=== PATIENT | male | born 1975 | race Caucasian/White ===

== ENCOUNTER 2018-06-23 08:12 | Outpatient (RCR) | payer SELFPAY ==
--- NOTE | 2018-06-23 08:13 | COCO.CNN ---
Primary Reason for Visit Mental Health (Support for family) Referral to Care Coordination Referral to Care Coordination: Yes Type: Other (resource team referral) Referral to Services: Yes - Referral From Referral From: School ([employer]) Care Plan - Plan of Care Assessment/Background: I meet with Mary to discus the supports that we could help advocate for them. We decided to do a resource team referral so that we could present them to local agencies. If need be we can then ask for a Coordinated service plan. We will present them next Tuesday and then make a plan to move forward from there. Plan of Care: present family at the resource team [facility] Self Management Plan Complete?: Yes (action plan)
== END 2018-07-21 23:59 | disposition home or self-care (01) ==
LOC: COCO 08:12
PROVIDERS: PCP Internal Medicine; Visit Provider Internal Medicine
DX: R69 Illness, unspecified (principal)

== ENCOUNTER 2018-07-26 19:58 | Emergency (ER) | payer MEDICARE, MEDICAID, SELFPAY ==
[2018-07-26 20:33] VITALS: BP 148/91; PULSE 74; RESP 18; TEMP 36.7; O2SAT 96
--- NOTE | 2018-07-26 20:49 | W.ED.GENAD ---
Discharge Plan Disposition Patient Disposition: HOME Condition: Fair Discharge Details Chief Complaint: DentalOral Clinical Impression: Dental infection Reason For Visit: worst tooth ache Primary Care Provider: Jermaine Choe ED Provider: Mariia Ruiz Home Meds and New Rx's Prescriptions: New tramadol 50 mg tablet 50 mg PO Q6H PRN (Reason: pain) Qty: 5 RF: 0 Continue ibuprofen 200 MG tablet 800 mg PO PRN RF: 0 citalopram 40 MG tablet 40 mg PO DAILY RF: 0 cetirizine [Zyrtec] 10 MG tablet 10 mg PO HS PRN PRNQty: 30 RF: 0 meclizine [Antivert] 25 MG tablet 25 mg PO Q6H PRN PRN (Reason: Vertigo) Qty: 12 RF: 0 omeprazole 20 MG tablet,delayed release (DR/EC) 40 mg PO DAILY RF: 0 propranolol 20 MG tablet 20 mg PO DAILY RF: 0 albuterol sulfate [ProAir HFA] 200 PUFF HFA aerosol inhaler 2 puff Inhalation Q4H PRN PRNQty: 1 RF: 0 No Action penicillin V potassium 500 mg Tablet 500 mg PO RF: 0 Discharge Instructions Instructions: Dental Abscess (ED) Additional Instructions: Encourage hydration. Tylenol and/or ibuprofen as needed for discomfort. You may take at thousand milligrams of Tylenol every 6 hours as needed for discomfort, no more than 4000 mg daily. You may augment this with 600 mg of ibuprofen every 6 hours as needed for pain. Hurricaine gel may be applied topically to affected area. Apply thin cloth layer to 4 times daily tramadol as prescribed if this is unsuccessful at alleviating her discomfort. Please take this medication only as prescribed, keep this in a safe place. Do not drive while taking this medication. Please keep upcoming appointment with dentist If you develop fever/chills, increased swelling, increased pain or other new/worsening symptoms please seek care urgently once again Referrals: Jermaine Choe [Primary Care Provider] - Discharge Data Discharge Date/Time-TO BE ENTERED AT DEPARTURE: 07/26/18 21:38 Medical Decision Making Patient is a 43-year-old male, accompanied by significant other, with chief complaint of left lower dental pain. Reports a dental pain began 2 days ago. Seen by his dentist today. States that he has abscess as confirmed by x-ray. They advised dental extraction after antibiotic course. Place the patient on penicillin. States he has been taking this as prescribed. His (sounds afternoon. However, he reports the pain is been increasing the point that he cannot take it. States his pain is been keeping him up for the past 2 nights. He denies any fevers or chills. states that he has been taking copious amounts of Tylenol and ibuprofen and despite this he continues to have discomfort. Is also been using Orajel with minimal relief. Patient does report that he used to chew tobacco and replace the product in the area of discomfort. On exam, patient has multiple caries, has receding gumline over the area of discomfort associated erythema. No palpable area of fluctuance to suggest a drainable abscess at this time. Patient is already on antibiotics as prescribed by dentist. He has an appointment next week and follow-up with scheduled extraction. I did review the PDM P, patient is received 1 narcotic prescription in the past year. We discussed safe usage of narcotics. He is requesting the lowest narcotic possible. Patient will be placed on tramadol. I did advise that this is still addicting and to keep him safe place, particularly as they have children in the house. Encourage hydration. Patient will also be prescribed Hurricaine gel to help with topical discomfort. We discussed new/worsening symptoms and when to seek care urgently again. I advised that he keep appointment with dentist next week even if symptoms. All of his questions and concerns were addressed and he is in agreement with this plan. HPI General Mode of arrival: ambulatory. Date/Time Provider Initiated Documentation: 07/26/18 20:33. Limitations to Documentation: no limitations. Information obtained by: patient and family. History of Present Illness 43 year old M presents to the emergency department with the chief complaint of left lower dental pain, described as severe, Quality is described as aching, and is localized to the mouth. Patient reports no radiation. Patient started experiencing this day(s) (2) and it has been constant. No relieving factors improve symptom(s), Eating worsens symptoms . Patient notes denies chest pain, cough, fever/chills, loss of appetite, nausea/vomiting, rash and shortness of breath. Patient did receive the following treatments prior to arrival, NSAID and heat therapy Related Data Home Medications Medication Instructions Recorded Confirmed ibuprofen 800 mg PO PRN 04/28/14 09/28/17 cetirizine [Zyrtec] 10 mg PO HS PRN PRN #30 tablet 04/29/15 09/28/17 citalopram 40 mg PO DAILY 04/29/15 09/28/17 meclizine [Antivert] 25 mg PO Q6H PRN PRN #12 tab 03/10/16 09/28/17 omeprazole 40 mg PO DAILY 12/25/16 09/28/17 albuterol sulfate [ProAir HFA] 2 puff INHALATION Q4H PRN PRN #1 09/28/17 inh propranolol 20 mg PO DAILY 09/28/17 09/28/17 tramadol 50 mg PO Q6H PRN #5 tab 07/26/18 penicillin V potassium 500 mg PO 07/27/18 Previous Rx's Medication Instructions Recorded cetirizine [Zyrtec] 10 mg PO HS PRN PRN #30 tablet 04/29/15 meclizine [Antivert] 25 mg PO Q6H PRN PRN #12 tab 03/10/16 albuterol sulfate [ProAir HFA] 2 puff INHALATION Q4H PRN PRN #1 09/28/17 inh tramadol 50 mg PO Q6H PRN #5 tab 07/26/18 Allergies Allergy/AdvReac Type Severity Reaction Status Date / Time erythromycin base Allergy Severe unsure- Verified 07/27/18 00:48 [Erythromycin Base] respiratory problem General Stated Complaint: DentalOral TERRELL: 4 Review of Systems Constitutional Reports as per HPI, Denies chills, Denies fatigue, Denies fever(s), Denies headache(s) and Denies poor appetite Eyes Denies change in vision and Denies irritation ENT Reports as per HPI, Reports dental pain, Denies dysphagia, Denies dizziness, Denies ear discharge, Reports otalgia, Reports facial pain, Denies headache(s), Denies lip swelling and Denies odynophagia Cardiovascular Reports as per HPI and Denies chest pain Respiratory Reports as per HPI and Denies cough Gastrointestinal Reports as per HPI, Denies dysphagia, Denies nausea, Denies odynophagia and Denies vomiting Integumentary/Breasts Reports as per HPI, Denies erythema, Denies rash and Denies skin pain Neurologic Denies dizziness and Denies headache(s) Endocrine Denies fatigue Allergic/Immunologic Denies lip swelling PFSH Social History Smoking/Tobacco Use Status: Current every day Social History Smoking/Tobacco Use Status: Current every day Exam Const General: cooperative, healthy appearing, comfortable, no acute distress, well developed and well groomed Nutritional Appearance: average body habitus and well nourished Orientation: alert and awake [facility] Head: normal to inspection, normocephalic and atraumatic Ears: hearing grossly normal bilaterally, external ears normal and TM's normal bilaterally General nose exam: external nose normal and nares normal Face and sinus: normal facial exam, sinuses nontender and face symmetric Mouth: oral mucosae normal, lip normal, tongue normal, no muffled voice and no trismus Teeth and gingiva: abnormal dentition (Patient has generally poor dentition. Along the 19, 20 and 21 tooth, there is receding gumline with blackened tissue along the buccal side of the tooth. The area of discomfort. Gingiva is erythematous. No focal area of fluctuance to suggest drainable abscess. No pain along the lingual side. No) and caries Throat: posterior oropharynx normal, tonsils normal and uvula midline Eyes General: appearance normal, both eyes and all related structures Neck Neck: normal visual inspection, full ROM, no lymphadenopathy, supple and no anterior neck swelling Resp Effort & Inspection: normal respiratory effort, able to speak in complete sentences and no respiratory distress Auscultation: clear to auscultation bilaterally, no rales, no rhonchi and no wheezes Cardio Rate: regular rate Rhythm: regular rhythm Heart Sounds: S1 normal and S2 normal Skin General skin exam: no rashes or lesions noted Trauma: no lacerations or abrasions Neuro General: alert and awake Cognition: normal cognition Speech: speech normal Gait: normal gait Psych Appearance: grossly normal and well kempt Mental Status: mental status grossly normal Speech and Movement: speech and movement normal Course Vital Signs Temperature 36.7 C 07/26/18 20:33 Pulse 74 07/26/18 20:33 Respiratory Rate 18 07/26/18 20:33 Blood Pressure 148/91 H 07/26/18 20:33 Pulse Oximetry 96 07/26/18 20:33 Temperature 36.7 C 07/26/18 20:33 Temperature Source Temporal Artery Scan 07/26/18 20:33 Pulse 74 07/26/18 20:33 Respiratory Rate 18 07/26/18 20:33 Blood Pressure 148/91 H 07/26/18 20:33 Blood Pressure Position Sitting 07/26/18 20:33 Pulse Oximetry 96 07/26/18 20:33 Oxygen Delivery Method Room Air 07/26/18 20:33 Oxygen Flow Rate 0 07/26/18 20:33 Pain Level 9 07/26/18 20:33
[2018-07-26] MEDS: traMADol 50 MG TAB PO (21:31)
[2018-07-26] MEDS: Benzocaine 20% Gel 30 GM JAR MM (21:31)
--- NOTE | 2018-07-26 21:32 | ED.GENADUL_ITS ---
Discharge Plan Disposition Patient Disposition: HOME Condition: Fair Discharge Details Chief Complaint: DentalOral Clinical Impression: Dental infection Reason For Visit: worst tooth ache Primary Care Provider: Jermanie Choe ED Provider: Mariia Ruiz Home Meds and New Rx's Prescriptions: New tramadol 50 mg tablet 50 mg PO Q6H PRN (Reason: pain) Qty: 5 RF: 0 Continue ibuprofen 200 MG tablet 800 mg PO PRN RF: 0 citalopram 40 MG tablet 40 mg PO DAILY RF: 0 cetirizine [Zyrtec] 10 MG tablet 10 mg PO HS PRN PRNQty: 30 RF: 0 meclizine [Antivert] 25 MG tablet 25 mg PO Q6H PRN PRN (Reason: Vertigo) Qty: 12 RF: 0 omeprazole 20 MG tablet,delayed release (DR/EC) 40 mg PO DAILY RF: 0 propranolol 20 MG tablet 20 mg PO DAILY RF: 0 albuterol sulfate [ProAir HFA] 200 PUFF HFA aerosol inhaler 2 puff Inhalation Q4H PRN PRNQty: 1 RF: 0 No Action penicillin V potassium 500 mg Tablet 500 mg PO RF: 0 Discharge Instructions Instructions: Dental Abscess (ED) Additional Instructions: Encourage hydration. Tylenol and/or ibuprofen as needed for discomfort. You may take at thousand milligrams of Tylenol every 6 hours as needed for discomfort, no more than 4000 mg daily. You may augment this with 600 mg of ibuprofen every 6 hours as needed for pain. Hurricaine gel may be applied topically to affected area. Apply thin tile layer helper to 4 times daily tramadol as prescribed if this is unsuccessful at alleviating her discomfort. Please take this medication only as prescribed, keep this in a safe place. Do not drive while taking this medication. Please keep upcoming appointment with dentist If you develop fever/chills, increased swelling, increased pain or other new/ worsening symptoms please seek care urgently once again Referrals: Jermaine Choe [Primary Care Provider] - Discharge Data Discharge Date/Time-TO BE ENTERED AT DEPARTURE: 07/26/18 21:38 Medical Decision Making Patient is a 43-year-old male, accompanied by significant other, with chief complaint of left lower dental pain. Reports a dental pain began 2 days ago. Seen by his dentist today. States that he has abscess as confirmed by x-ray. They advised dental extraction after antibiotic course. Place the patient on penicillin. States he has been taking this as prescribed. His (sounds afternoon. However, he reports the pain is been increasing the point that he cannot take it. States his pain is been keeping him up for the past 2 nights. He denies any fevers or chills. states that he has been taking copious amounts of Tylenol and ibuprofen and despite this he continues to have discomfort. Is also been using Orajel with minimal relief. Patient does report that he used to chew tobacco and replace the product in the area of discomfort. On exam, patient has multiple caries, has receding gumline over the area of discomfort associated erythema. No palpable area of fluctuance to suggest a drainable abscess at this time. Patient is already on antibiotics as prescribed by dentist. He has an appointment next week and follow-up with scheduled extraction. I did review the PDM P, patient is received 1 narcotic prescription in the past year. We discussed safe usage of narcotics. He is requesting the lowest narcotic possible. Patient will be placed on tramadol. I did advise that this is still addicting and to keep him safe place, particularly as they have children in the house. Encourage hydration. Patient will also be prescribed Hurricaine gel to help with topical discomfort. We discussed new/worsening symptoms and when to seek care urgently again. I advised that he keep appointment with dentist next week even if symptoms. All of his questions and concerns were addressed and he is in agreement with this plan. HPI General Mode of arrival: ambulatory . Date/Time Provider Initiated Documentation: 07/26/18 20:33 . Limitations to Documentation: no limitations . Information obtained by: patient and family . History of Present Illness 43 year old M presents to the emergency department with the chief complaint of left lower dental pain, described as severe, Quality is described as aching , and is localized to the mouth. Patient reports no radiation. Patient started experiencing this day(s) (2) and it has been constant. No relieving factors improve symptom(s), Eating worsens symptoms . Patient notes denies chest pain, cough, fever/chills, loss of appetite, nausea/vomiting, rash and shortness of breath. Patient did receive the following treatments prior to arrival, NSAID and heat therapy Related Data Home Medications Medication Instructions Recorded Confirmed ibuprofen 800 mg PO PRN 04/28/14 09/28/17 cetirizine [Zyrtec] 10 mg PO HS PRN PRN #30 tablet 04/29/15 09/28/17 citalopram 40 mg PO DAILY 04/29/15 09/28/17 meclizine [Antivert] 25 mg PO Q6H PRN PRN #12 tab 03/10/16 09/28/17 omeprazole 40 mg PO DAILY 12/25/16 09/28/17 albuterol sulfate [ProAir HFA] 2 puff INHALATION Q4H PRN PRN #1 09/28/17 inh propranolol 20 mg PO DAILY 09/28/17 09/28/17 tramadol 50 mg PO Q6H PRN #5 tab 07/26/18 penicillin V potassium 500 mg PO 07/27/18 Previous Rx's Medication Instructions Recorded cetirizine [Zyrtec] 10 mg PO HS PRN PRN #30 tablet 04/29/15 meclizine [Antivert] 25 mg PO Q6H PRN PRN #12 tab 03/10/16 albuterol sulfate [ProAir HFA] 2 puff INHALATION Q4H PRN PRN #1 09/28/17 inh tramadol 50 mg PO Q6H PRN #5 tab 07/26/18 Allergies Allergy/AdvReac Type Severity Reaction Status Date / Time erythromycin base Allergy Severe unsure- Verified 07/27/18 00:48 [Erythromycin Base] respiratory problem General Stated Complaint: DentalOral TERRELL: 4 Review of Systems Constitutional Reports as per HPI, Denies chills, Denies fatigue, Denies fever(s), Denies headache(s) and Denies poor appetite Eyes Denies change in vision and Denies irritation ENT Reports as per HPI, Reports dental pain, Denies dysphagia, Denies dizziness, Denies ear discharge, Reports otalgia, Reports facial pain, Denies headache(s), Denies lip swelling and Denies odynophagia Cardiovascular Reports as per HPI and Denies chest pain Respiratory Reports as per HPI and Denies cough Gastrointestinal Reports as per HPI, Denies dysphagia, Denies nausea, Denies odynophagia and Denies vomiting Integumentary/Breasts Reports as per HPI, Denies erythema, Denies rash and Denies skin pain Neurologic Denies dizziness and Denies headache(s) Endocrine Denies fatigue Allergic/Immunologic Denies lip swelling PFSH Social History Smoking/Tobacco Use Status: Current every day Social History Smoking/Tobacco Use Status: Current every day Exam Const General: cooperative, healthy appearing, comfortable, no acute distress, well developed and well groomed Nutritional Appearance: average body habitus and well nourished Orientation: alert and awake [facility] Head: normal to inspection, normocephalic and atraumatic Ears: hearing grossly normal bilaterally, external ears normal and TM's normal bilaterally General nose exam: external nose normal and nares normal Face and sinus: normal facial exam, sinuses nontender and face symmetric Mouth: oral mucosae normal, lip normal, tongue normal, no muffled voice and no trismus Teeth and gingiva: abnormal dentition (Patient has generally poor dentition. Along the 19, 20 and 21 tooth, there is receding gumline with blackened tissue along the buccal side of the tooth. The area of discomfort. Gingiva is erythematous. No focal area of fluctuance to suggest drainable abscess. No pain along the lingual side. No) and caries Throat: posterior oropharynx normal, tonsils normal and uvula midline Eyes General: appearance normal, both eyes and all related structures Neck Neck: normal visual inspection, full ROM, no lymphadenopathy, supple and no anterior neck swelling Resp Effort & Inspection: normal respiratory effort, able to speak in complete sentences and no respiratory distress Auscultation: clear to auscultation bilaterally, no rales, no rhonchi and no wheezes Cardio Rate: regular rate Rhythm: regular rhythm Heart Sounds: S1 normal and S2 normal Skin General skin exam: no rashes or lesions noted Trauma: no lacerations or abrasions Neuro General: alert and awake Cognition: normal cognition Speech: speech normal Gait: normal gait Psych Appearance: grossly normal and well kempt Mental Status: mental status grossly normal Speech and Movement: speech and movement normal Course Vital Signs Temperature 36.7 C 07/26/18 20:33 Pulse 74 07/26/18 20:33 Respiratory Rate 18 07/26/18 20:33 Blood Pressure 148/91 H 07/26/18 20:33 Pulse Oximetry 96 07/26/18 20:33 Temperature 36.7 C 07/26/18 20:33 Temperature Source Temporal Artery Scan 07/26/18 20:33 Pulse 74 07/26/18 20:33 Respiratory Rate 18 07/26/18 20:33 Blood Pressure 148/91 H 07/26/18 20:33 Blood Pressure Position Sitting 07/26/18 20:33 Pulse Oximetry 96 07/26/18 20:33 Oxygen Delivery Method Room Air 07/26/18 20:33 Oxygen Flow Rate 0 07/26/18 20:33 Pain Level 9 07/26/18 20:33
[2018-07-26] MEDS: traMADol 50 MG TAB 100 MG PO (21:33)
== END 2018-07-26 21:38 | disposition home or self-care (01) ==
PROVIDERS: Emergency Provider Physician Assistant; PCP Internal Medicine
DX: K04.7 Periapical abscess without sinus (principal); R68.84 Jaw pain; K02.9 Dental caries, unspecified
CPT/HCPCS: 99283

== ENCOUNTER 2019-05-29 16:05 | Emergency (ER) | payer MEDICARE, MEDICAID, SELFPAY ==
[2019-05-29 16:09] VITALS: BP 148/79; PULSE 72; RESP 16; TEMP 36.7; O2SAT 98
[2019-05-29 16:35] VITALS: RESP 19; RESP 4
[2019-05-29] MEDS: Albuterol/Ipratropium 3 ML UPD VIAL ×2 (16:35→16:51)
--- NOTE | 2019-05-29 16:39 | DI.RAD_ITS ---
EXAM: XR CHEST 2V PA LATERAL INDICATION: cough. COMPARISON: CHEST 2 VIEWS PA,LAT from 10/28/2009 TECHNIQUE: 2D digital imaging was performed. FINDINGS: There is a question regarding some ill-defined increased density in the right lower lobe. The lungs a re otherwise clear. There is no pleural effusion. The heart is not enlarged. IMPRESSION: Question of atelectasis or infiltration involving the right lower lobe.
[2019-05-29 16:51] VITALS: RESP 4; O2SAT 97
--- NOTE | 2019-05-29 17:34 | DI.VRAD_ITS ---
PROCEDURE INFORMATION: Exam: XR Chest, 2 Views Exam date and time: 05/29/2019 5:18 PM Clinical history: 44 years old, male; Other: Cough TECHNIQUE: Imaging protocol: XR of the chest Views: 2 views. COMPARISON: No relevant prior studies available. FINDINGS: Lungs: Mild opacities in the right lower lobe may represent atelectasis or pneumonia. Pleural space: Unremarkable. No pleural effusion. No pneumothorax. Heart/Mediastinum: Unremarkable. No cardiomegaly. Bones/joints: Unremarkable. IMPRESSION: Mild opacities in the right lower lobe may represent atelectasis or pneumonia. Dictated and Authenticated by: Ruben Israel MD. Ordering:JOSE Pa MD
--- NOTE | 2019-05-29 18:05 | ED.GENADUL_ITS ---
Discharge Plan Disposition Patient Disposition: HOME Condition: Stable Discharge Details Chief Complaint: RespSymp Clinical Impression: Pneumonia Primary Care Provider: Jermaine Choe ED Provider: Thierno Hernandez Home Meds and New Rx's Prescriptions: New prednisone 20 mg tablet 40 mg PO DAILY Qty: 4 RF: 0 doxycycline hyclate 20 mg tablet 20 mg PO BID Qty: 14 RF: 0 benzonatate [Tessalon Perles] 100 mg capsule 100 mg PO TID PRN (Reason: cough) Qty: 30 RF: 0 Continued ibuprofen 200 MG tablet 800 mg PO PRN RF: 0 citalopram 40 MG tablet 40 mg PO DAILY RF: 0 cetirizine [Zyrtec] 10 MG tablet 10 mg PO HS PRN PRNQty: 30 RF: 0 meclizine [Antivert] 25 MG tablet 25 mg PO Q6H PRN PRN (Reason: Vertigo) Qty: 12 RF: 0 omeprazole 20 MG tablet,delayed release (DR/EC) 40 mg PO DAILY RF: 0 propranolol 20 MG tablet 20 mg PO DAILY RF: 0 albuterol sulfate [ProAir HFA] 200 PUFF HFA aerosol inhaler 2 puff Inhalation Q4H PRN PRNQty: 1 RF: 0 Discharge Instructions Instructions: Pneumonia (ED) Additional Instructions: Please take medication as prescribed, get plenty of rest, and stay well- hydrated. Return to the emergency department for any new or significant worsening of symptoms otherwise follow-up with your primary care provider for reassessment if not improving over the next week. Referrals: Jermaine Choe [Primary Care Provider] - (If not improving over the next week) Discharge Data Discharge Date/Time-TO BE ENTERED AT DEPARTURE: 05/29/19 18:20 Medical Decision Making Patient presenting to the emergency department for chief complaint of cough. Patient reports he has had the symptoms for 3 weeks and saw his primary care provider who placed him on a allergy medication. Patient states over the past week or so he has had significant worsening of symptoms, more malaise, increased shortness of breath with activity and lack of energy. Patient does state some chills but denies any known fever. Significant other does note patient may have had night sweats but patient is unsure of this. Physical exam shows diffuse wheezing throughout all lung zamora, ill but non-toxic appearing patient, otherwise unremarkable exam. Plan to do chest x-ray and give DuoNeb pending results. Review of radiological imaging and radiologist interpretation shows Mild opacities in the right lower lobe may represent atelectasis or pneumonia. I feel the patient's clinical course is more consistent with pneumonia. Given patient's duration of symptoms patient was started on doxycycline, sent home with inhaler and spacer, and close return precautions were discussed. After discussion of diagnosis and plan of care patient has no further needs, questions, or concerns and states clear understanding to return to the emergency department for any worsening symptoms. HPI General Mode of arrival: ambulatory . Date/Time Provider Initiated Documentation: 05/29/19 16:39 . Limitations to Documentation: no limitations . Information obtained by: patient, family and RN notes reviewed . History of Present Illness 44 year old M presents to the emergency department with the chief complaint of cough, described as moderate, with intensity rated at 4. Quality is described as aching, and is localized to the chest. Patient started experiencing this week(s) (3) and it has been constant. No relieving factors improve symptom(s), No exacerbating factors reported . Related Data Home Medications Medication Instructions Recorded Confirmed ibuprofen 800 mg PO PRN 04/28/14 05/29/19 cetirizine [Zyrtec] 10 mg PO HS PRN PRN #30 tablet 04/29/15 05/29/19 citalopram 40 mg PO DAILY 04/29/15 05/29/19 meclizine [Antivert] 25 mg PO Q6H PRN PRN #12 tab 03/10/16 05/29/19 omeprazole 40 mg PO DAILY 12/25/16 05/29/19 albuterol sulfate [ProAir HFA] 2 puff INHALATION Q4H PRN PRN #1 09/28/17 05/29/19 inh propranolol 20 mg PO DAILY 09/28/17 05/29/19 benzonatate [Tessalon Perles] 100 mg PO TID PRN #30 cap 05/29/19 doxycycline hyclate 20 mg PO BID #14 tab 05/29/19 prednisone 40 mg PO DAILY #4 tab 05/29/19 Previous Rx's Medication Instructions Recorded cetirizine [Zyrtec] 10 mg PO HS PRN PRN #30 tablet 04/29/15 meclizine [Antivert] 25 mg PO Q6H PRN PRN #12 tab 03/10/16 albuterol sulfate [ProAir HFA] 2 puff INHALATION Q4H PRN PRN #1 09/28/17 inh benzonatate [Tessalon Perles] 100 mg PO TID PRN #30 cap 05/29/19 doxycycline hyclate 20 mg PO BID #14 tab 05/29/19 prednisone 40 mg PO DAILY #4 tab 05/29/19 Allergies Allergy/AdvReac Type Severity Reaction Status Date / Time erythromycin base Allergy Severe unsure- Verified 05/29/19 16:14 [Erythromycin Base] respiratory problem General Stated Complaint: RespSymp TERRELL: 4 Review of Systems Constitutional Constitutional: Reports chills, Denies headache(s) and Reports malaise ENT Ears, Nose, Mouth, and Throat: Denies otalgia, Denies headache(s), Denies nasal congestion, Denies nasal discharge, Denies neck pain and Reports sore throat Cardiovascular Cardiovascular: Reports chest pain and Reports dyspnea Respiratory Respiratory: Reports chest congestion, Reports cough, Denies hemoptysis, Reports pain with cough and Reports dyspnea Musculoskeletal Musculoskeletal: Denies neck pain Integumentary/Breasts Skin/Breast: Denies rash Neurologic Neurologic: Denies headache(s) [facility] Social History Smoking/Tobacco Use Status: Current every day Alcohol Intake: current Alcohol Intake frequency: a few times a month Drug use: Never Substance use type: does not use Do you feel safe at home: Yes Do you feel safe in your relationship?: Yes Exam Const General: cooperative, comfortable and no acute distress Orientation: alert and awake [facility] Head: normal to inspection, normocephalic and atraumatic Ears: hearing grossly normal bilaterally and TM's normal bilaterally General nose exam: external nose normal Mouth: oral mucosae normal, no drooling, no muffled voice and no trismus Throat: posterior oropharynx normal Neck Neck: normal visual inspection, full ROM, no lymphadenopathy, no meningeal signs, trachea midline and supple Resp Effort & Inspection: normal respiratory effort, able to speak in complete sentences and cough Quality of cough: dry Auscultation: wheezes scattered wheezes Cardio Rate: regular rate Rhythm: regular rhythm Heart Sounds: S1 normal, S2 normal, normal S1 and S2, no click, no gallops, no murmurs and no rubs Skin General skin exam: no rashes or lesions noted and dry skin (warm) Neuro General: alert, awake, oriented x3, gait normal and moves all extremities Course Vital Signs Vital signs: Vital Signs Temperature 36.7 C 05/29/19 16:09 Pulse 72 05/29/19 16:09 Respiratory Rate 16 05/29/19 16:09 Blood Pressure 148/79 H 05/29/19 16:09 Pulse Oximetry 98 05/29/19 16:09 Temperature 36.7 C 05/29/19 16:09 Temperature Source Temporal Artery Scan 05/29/19 16:09 Pulse 72 05/29/19 16:09 Respiratory Rate 16 05/29/19 16:09 Respiratory Effort Non-Labored 05/29/19 16:13 Respiratory Depth Normal 05/29/19 16:38 Blood Pressure 148/79 H 05/29/19 16:09 Blood Pressure Position Sitting 05/29/19 16:09 Pulse Oximetry 97 05/29/19 16:51 Oxygen Delivery Method Room Air 05/29/19 16:51 Oxygen Flow Rate 0 05/29/19 16:51 Pain Level 0 05/29/19 16:09
[2019-05-29] MEDS: Doxycycline Hyclate 100 MG CAP PO (18:11)
[2019-05-29] MEDS: Albuterol HFA 8 GM 60 PUFF INH IH (18:11)
[2019-05-29] MEDS: Inhaler, Assist Device 1 EACH MC (18:11)
== END 2019-05-29 18:20 | disposition home or self-care (01) ==
PROVIDERS: Emergency Provider Nurse Practitioner Family; PCP Internal Medicine
DX: J18.9 Pneumonia, unspecified organism (principal); F17.210 Nicotine dependence, cigarettes, uncomplicated
CPT/HCPCS: 94640; 99283; 71046; J7620

== ENCOUNTER 2019-10-26 01:06 | Outpatient (CLI) | payer MEDICARE, MEDICAID, SELFPAY ==
[2019-10-26] MEDS: Albuterol HFA 18 GM 200 PUFF INH IH (10:50)
[2019-10-26] MEDS: Inhaler, Assist Device 1 EACH MC (10:50)
--- NOTE | 2019-10-26 12:47 | PFT_ITS ---
PULMONARY FUNCTION TEST REPORT DATE OF SERVICE: October 26, 2019 REQUESTING PROVIDER: Dr. Ocampo Spirometry shows mild obstructive airways disease with no significant bronchodilator response. Lung volumes show no evidence of restriction. Diffusion capacity normal. Airways resistance elevated. IMPRESSION: Mild obstructive airways disease with no significant bronchodilator response. This is associated with elevated airways resistance. Clinical correlation recommended. RODDY/chris D/
== END 2019-10-26 01:26 ==
PROVIDERS: PCP Internal Medicine; Visit Provider Internal Medicine
DX: R06.09 Other forms of dyspnea (principal); J44.9 Chronic obstructive pulmonary disease, unspecified
CPT/HCPCS: 94060; 94726; 94729

== ENCOUNTER 2022-11-17 19:48 | Outpatient (REF) | payer MEDICARE, MEDICAID, SELFPAY | END 2022-11-17 19:49 | disposition home or self-care (01) | LOC: LBN 19:48 | PROVIDERS: PCP Internal Medicine; Visit Provider Physician Assistant Medical | DX: J02.9 Acute pharyngitis, unspecified (principal) | CPT/HCPCS: 87070 ==

== ENCOUNTER 2023-05-10 03:54 | Outpatient (CLI) | payer MEDICARE, MEDICAID, SELFPAY ==
[2023-05-10] MEDS: Levalbuterol HFA 15 GM INH 4 PUFF IH (11:14)
[2023-05-10] MEDS: Inhaler, Assist Device 1 EACH MC (11:15)
--- NOTE | 2023-05-10 13:13 | W.6MWT ---
Date of service: 05/10/23 Time of Service: 10:06 6 Minute Walk Test Note: 6 Minute Walk Test Distance walked: 1450 ft Desaturations: no significant desaturations Heart rate changes: 112bpm to 145 bpm Recommendation: No supplemental O2 needed. Over-exaggerated heart rate response. This can represent deconditioning. Isabella Lr MD Pulmonary & Critical Care Medicine
--- NOTE | 2023-05-10 16:43 | W.PFT ---
Date of service: 05/10/23 Time of Service: 10:07 Pulmonary Function Test Result Indications: COPD Interpretation Spirometry: There is no airflow limitation. There is no bronchodilator response Lung Volumes: There is air trapping Diffusion Capacity: Increased diffusion Airway Pressure: Normal airways resistance Impression Normal pulmonary function testing. Increased diffusion is likely due to elevated BMI Clinical Correlation therefore is recommended.
== END 2023-05-10 03:55 | disposition home or self-care (01) ==
PROVIDERS: PCP Internal Medicine; Visit Provider Student in an Organized Health Care Education/Training Program
DX: J44.9 Chronic obstructive pulmonary disease, unspecified (principal); R06.00 Dyspnea, unspecified
CPT/HCPCS: 94060; 94618; 94726; 94729

== ENCOUNTER → 2023-05-23 02:13 | Outpatient (CLI) | payer MEDICARE, MEDICAID, SELFPAY ==
--- NOTE | 2023-05-23 07:45 | DI.US_ITS ---
APPROVED REPORT EXAM: Comprehensive 2D, Doppler, and color-flow Echocardiogram Patient Location: Out-Patient Packager Or Packer And Weigher: Raymond Coreas RDCS (AE) Indications: dyspnea on exertion, COPD, ? right heart failure, sleep apnea Other Information Study Quality: Good Conclusion Normal left ventricular wall thickness and chamber size. Ejection fraction is 60%. Wall motion is n ormal Normal right ventricular size and systolic function Both atria are normal in size There is no structural or hemodynamically significant valvular disease Right ventricular systolic pressure could not be estimated Wall motion Left Ventricle The left ventricle is normal size. The left ventricular systolic function is normal. The left ventric ular ejection fraction is within the normal range. There is normal left ventricular wall thickness. T here is normal LV segmental wall motion. There is no ventricular septal defect visualized. LVEF is 60 %. Right Ventricle The right ventricle is normal size. The right ventricular systolic function is normal. Unable to asse ss PA pressure. Atria The left atrium size is normal. The right atrium size is normal. The interatrial septum is intact wit h no evidence for an atrial septal defect. Aortic Valve The aortic valve is normal in structure. Aortic valve is trileaflet. There is no aortic valvular sten osis. No aortic regurgitation is present. Mitral Valve The mitral valve is normal in structure. No evidence of mitral valve stenosis. There is no mitral angelo ve regurgitation noted. Tricuspid Valve The tricuspid valve is normal in structure. There is no tricuspid valve stenosis. Trace tricuspid reg urgitation. Pulmonic Valve The pulmonary valve is normal in structure. There is no pulmonic valvular stenosis. Trace pulmonic re gurgitation. Great Vessels The aortic root is normal in size. The ascending aorta is normal in size. Aortic arch is normal in ca liber. IVC is normal in size and collapses >50% with inspiration. Pericardium There is no pericardial effusion. 2D Dimensions IVSD d PLAX 0.68 cm M: 0.6-1.2 Ao Root d 2.51 cm M: 3.1 - 3.7 LVPW d PLAX 0.72 cm M: 0.6 - 1.2 Ao Asc Diam d 2.74 cm M: 2.6 - 3.4 LVID d PLAX 4.41 cm M: 4.2 - 5.8 LVDs 3.01 cm M: 2.5 - 4.0 LV EF Teichholz 59.8 % FS 31.64 % LV EDV (Teich) 88.1 mL LV ESV (Teich) 35.4 mL Stroke Vol Index (Teich) 25.46 M-Mode TAPSE 2.27 cm (M/F) >1.7 Auto EF LV EDV A4C 94.0 mL LV EDV A2C 75.2 mL LV EDV BP LV ESV A4C 39.8 mL LV ESV A2C 30.8 mL LV ESV BP LVEF(%) A4C 57.7 % LVEF(%) A2C 59.1 % LVEF(%) BP LV SV A4C 54.2 ml LV SV A2C 44.5 ml LV SV BP LV CO A4C 5.9 L/min LV CO A2C 4.6 L/min LV CO BP HR A4C 108.77 BPM HR A2C 103.16 BPM LV EDV Index (BP) LA Volume LA Length A4C 4.5 cm LA Length A2C LA Area A4C s 8.83 cm2 LA Area A2C s LA Vol A4C A-L 14.83 mL LA Vol A2C A-L LA Vol Biplane A-L LA Vol A4C MOD 14.3 mL LA Vol A2C MOD LA Vol BP MOD RA Volume RA Area A4C 6.4 cm2 RA ESV A4C (A-L) 11.1mL RA Vol/BSA A4C A-L RA Length A4C 3.1 cm RA ESV A4C (MOD) 10.9mL LV Diastology MV E' medial 0.078 (>0.07 m/s) MV E Vmax 0.84 (0.4-1.3 m/s) MV E/E' MED 10.78 (<14) MV A Vmax 0.90 (0.4-1.3 m/s) E/A Ratio 0.9 Aortic Valve AoV Vmax 1.21 m/s LVOT Vmax 1.10 m/s AoV Peak Grad 5.9 mmHg LVOT Peak Grad 4.9 mmHg AoV Area (Vmax) 2.66 cm2 LVOT VTI 0.202 m AoV VTI 0.217 m LVOT Mean Grad 2.9 mmHg AoV Mean Edgar. 0.88 m/s LVOT SV 59.18 mL AoV Mean Grad 3.4 mmHg LVOT Diam s 1.90 cm AoV Area (VTI) 2.73 cm2 Velocity Ratio 0.91 Mitral Valve MV DT 264 (160-240 msec) Pulmonary Valve PV Vmax 0.89 (0.5-1.5 m/s) RVOT Vmax 0.79 m/s PV Peak Grad 3.2 mmHg RVOT Peak Gr. 2.5 mmHg PV Mean Edgar 0.63 m/s RVOT VTI 0.127 m PV Mean Grad 1.8 mmHg RVOT Mean Gr. 1.7 mmHg
== END ==
PROVIDERS: PCP Internal Medicine; Visit Provider Physician Assistant Surgical
DX: G47.33 Obstructive sleep apnea (adult) (pediatric) (principal); J44.9 Chronic obstructive pulmonary disease, unspecified; R06.09 Other forms of dyspnea
CPT/HCPCS: 93306

== ENCOUNTER 2023-05-26 12:37 | Outpatient (RCR) | payer MEDICARE, MEDICAID, SELFPAY ==
--- NOTE | 2023-05-26 12:45 | HOLTER_ITS ---
APPROVED REPORT Conclusion This is a 48-hour Holter monitor Rhythm throughout is sinus. Average heart rate was 108. Minimum heart rate was 83, maximum 158 There were a total of 7 isolated PVCs There were 2 isolated atrial premature beats There was no atrial fibrillation, no SVT, no high-grade AV block, no pauses greater than 3 seconds No patient symptoms were reported
== END 2023-06-21 23:59 | disposition home or self-care (01) ==
LOC: CARDOPNVT 12:37
PROVIDERS: PCP Internal Medicine; Visit Provider Student in an Organized Health Care Education/Training Program
DX: R06.00 Dyspnea, unspecified (principal)
CPT/HCPCS: 93227; 93225; 93226

== ENCOUNTER → 2023-06-07 00:54 | Outpatient (CLI) | payer MEDICARE, MEDICAID, SELFPAY ==
--- NOTE | 2023-06-07 08:30 | DI.CT_ITS ---
Exam(s) CT CHEST W EXAM: CT CHEST W CLINICAL HISTORY: worsening chest pain,dyspnea on exertion,r06.09,r07.9. TECHNIQUE: Multi planar reconstructions were performed. CONTRAST MATERIAL: Omnipaque 350; 75 cc COMPARISON: No exams were available for comparison FINDINGS: CHEST: LUNGS: There are no infiltrates nor pleural effusions. No evidence of significant interstitial disea se . no ominous pulmonary nodules. No significant focal findings evident in the trachea and mainstem bronchi. There is no bronchiectasis. MEDIASTINUM: There is no hilar nor mediastinal adenopathy. Partially visualized thyroid exhibits norm al size. CARDIAC: Heart size is normal. There is no pericardial effusion.Caliber thoracic aorta is within nor mal limits and there is no evidence of aortic dissection. VISUALIZED UPPER ABDOMEN:No significant adrenal masses. No splenomegaly. However, there is prominen t hepatic steatosis as well as hepatomegaly. No discrete focal hepatic lesions evident. No ascites. OSSEOUS: No significant osseous lesions.No fractures.. IMPRESSION: 1. No significant pulmonary findings. No pleural effusions. No intrathoracic adenopathy. 2. Normal heart size. No pericardial effusion. No aortic aneurysm nor dissection. 3. Hepatomegaly and advanced hepatic steatosis noted. No ascites evident. RADIATION DOSE DELIVERED: Total DLP DATA REPOSITORY: All CT scans at this facility are submitted to the National Radiology Data Registry (NRDR) Dose Index Registry (DIR) with the [employer] ([employer]). RADIATION OPTIMIZATION: All CT scans at this facility use at least one of these dose optimization te chniques: automated exposure control; mA and/or kV adjustment per patient size (includes targeted exa ms where dose is matched to clinical indication); or iterative reconstruction.
[2023-06-07] MEDS: Normal Saline - Diluent 50 ML VIAL IJ (15:27)
[2023-06-07] MEDS: Omnipaque 350 MG/ML 100 ML BTL IJ (15:28)
== END ==
PROVIDERS: PCP Internal Medicine; Visit Provider Physician Assistant Surgical
DX: R06.09 Other forms of dyspnea (principal); R07.9 Chest pain, unspecified; R16.0 Hepatomegaly, not elsewhere classified
CPT/HCPCS: 71260; J3490

== ENCOUNTER 2023-06-10 11:07 | Outpatient (CLI) | payer MEDICARE, MEDICAID, SELFPAY ==
--- NOTE | 2023-06-10 11:00 | RT.EKG_ITS ---
APPROVED REPORT Exam: Resting ECG Reason for Exam: Baseline needed Patient Location: O HR:107 bpm ECG Measurements Heart Rate 107 AXIS MI 162 P 39 QRSd 86 QRS 45 QT 341 T 84 QTc 455 Conclusion Sinus tachycardia...rate> 99 Otherwise normal ECG
== END 2023-06-10 11:08 | disposition home or self-care (01) ==
LOC: DI.CARD 11:09
PROVIDERS: PCP Internal Medicine; Referring Provider Internal Medicine; Visit Provider Internal Medicine Cardiovascular Disease
DX: J44.9 Chronic obstructive pulmonary disease, unspecified (principal); R06.09 Other forms of dyspnea
CPT/HCPCS: 93010

== ENCOUNTER → 2023-06-10 11:07 | Outpatient (BNVA) | payer MEDICARE, MEDICAID, SELFPAY | PROVIDERS: PCP Internal Medicine; Referring Provider Internal Medicine; Visit Provider Internal Medicine Cardiovascular Disease | DX: R07.9 Chest pain, unspecified (principal); R06.09 Other forms of dyspnea; J44.9 Chronic obstructive pulmonary disease, unspecified | CPT/HCPCS: 93005; 99213 ==

== ENCOUNTER → 2023-10-18 08:58 | Outpatient (BNVA) | payer MEDICARE, MEDICAID, SELFPAY | PROVIDERS: PCP Internal Medicine; Referring Provider Internal Medicine; Visit Provider Physician Assistant Surgical | DX: J44.9 Chronic obstructive pulmonary disease, unspecified (principal); R06.09 Other forms of dyspnea; G47.33 Obstructive sleep apnea (adult) (pediatric); K21.9 Gastro-esophageal reflux disease without esophagitis; Z87.891 Personal history of nicotine dependence | CPT/HCPCS: 99214 ==

== ENCOUNTER 2023-10-25 18:39 | Outpatient (REF) | payer MEDICARE, SELFPAY | END 2023-10-25 18:40 | disposition home or self-care (01) | LOC: LBN 18:39 | PROVIDERS: PCP Internal Medicine; Visit Provider Physician Assistant Medical | DX: J02.9 Acute pharyngitis, unspecified (principal) | CPT/HCPCS: 87070 ==